=== PATIENT | female | born 1935 | race Caucasian/White ===

== ENCOUNTER 2023-02-01 07:22 | Emergency (ER) | payer MEDICARE, OTHER ==
[~2023-02-01] VITALS: Ht 167.6 cm; Wt 79.4 kg
[2023-02-01] MEDS ORDERED: ASPIRIN REGIMEN81 MG PO (07:48)
[2023-02-01] MEDS ORDERED: LIPITOR10 MG PO (07:49)
[2023-02-01] MEDS ORDERED: DOCUSATE SODIU100 MG PO (07:49)
[2023-02-01] MEDS ORDERED: LOSARTAN POTASS25 MG PO (07:50)
[2023-02-01] MEDS ORDERED: METAMUCIL POWD174 GM PO (07:50)
[2023-02-01] MEDS ORDERED: VIACTIV 650 MG1 EACH PO (07:51)
[2023-02-01] MEDS ORDERED: B-12 DOTS500 MCG PO (07:53)
[2023-02-01] MEDS ORDERED: VITAMIN D3125 MC2 PO (07:54)
[2023-02-01] MEDS ORDERED: VITAMIN E180 MG PO (07:55)
[2023-02-01 10:25] VITALS: BP 142/86
== END 2023-02-01 10:25 | disposition home or self-care (01) ==
LOC: ED 07:22
DX: S60.221A Contusion of right hand, initial encounter (principal); W19.XXXA Unspecified fall, initial encounter; G30.9 Alzheimer's disease, unspecified; F02.80 Dementia in other diseases classified elsewhere, unspecified severity, without behavioral disturbance, psychotic disturbance, mood disturbance, and anxiety; I12.9 Hypertensive chronic kidney disease with stage 1 through stage 4 chronic kidney disease, or unspecified chronic kidney disease; N18.30 Chronic kidney disease, stage 3 unspecified; E11.22 Type 2 diabetes mellitus with diabetic chronic kidney disease; Z88.0 Allergy status to penicillin; Z79.899 Other long term (current) drug therapy; Z79.82 Long term (current) use of aspirin
CPT/HCPCS: 73130; 99283-25

== ENCOUNTER 2023-10-24 17:06 | Emergency (ER) | payer MEDICARE, OTHER ==
[~2023-10-24] VITALS: Ht 167.6 cm; Wt 79.4 kg
[~2023-10-24 17:06] MED LIST: ASPIRIN REGIMEN81 MG PO; B-12 DOTS500 MCG PO; DOCUSATE SODIU100 MG PO; LIPITOR10 MG PO; LOSARTAN POTASS25 MG PO; METAMUCIL POWD174 GM PO; VIACTIV 650 MG1 EACH PO; VITAMIN D3125 MC2 PO; VITAMIN E180 MG PO
[2023-10-24 17:40] LABS: BASOPHILS 0.6 % (0-2); HEMOGLOBIN 12.4 g/dL (12.0-18.0); PLATELET COUNT 189 K/uL (140-440)
[2023-10-24 18:04] LABS: EOSINOPHILS 0.2 % (0-6); HEMATOCRIT 36.9 % (35.0-50.0); LYMPHOCYTES 13.8 % (24-44); MCH 31.3 (27-36); MCHC 33.6 g/dl (30-36); MCV 93.3 fl (81-99); MONOCYTES 15.6 % (0-12); NEUTROPHILS 69.8 % (39-80); RBC 3.95 M/ul (4.3-5.7); RDW 14.1 (10.5-15.0)
[2023-10-24 18:04] LABS: BILIRUBIN, URINE NEGATIVE (negative); BLOOD/HGB, URINE TRACE-I (Negative); KETONE, URINE NEGATIVE (Negative); LEUK ESTERASE, URINE MODERATE (negative); NITRITE, URINE NEGATIVE (negative); PH, URINE 7.5 (5-7)
[2023-10-24 18:16] LABS: INFLUENZA B NAA NEGATIVE (NEGATIVE); RESPIRATORY SYNCYTIAL VIR NAA NEGATIVE (NEGATIVE)
[2023-10-24 18:16] LABS: ALBUMIN 3.1 g/dL (3.4-5.0); ALBUMIN/GLOBULIN RATIO 0.74 (1.1-2.4); ANION GAP 14.4 (7-21); BILIRUBIN, TOTAL 0.4 ng/dL (0.2-1.0); BUN/CREATININE RATIO 18.33 (6.0-28.6); CALCIUM 8.5 mg/dL (8.5-10.1); CREATININE, SERUM 1.2 mg/dL (0.55-1.02); POTASSIUM 4.4 mmol/L (3.5-5.1); PROTEIN, TOTAL 7.3 g/dL (6.4-8.2)
[2023-10-24 18:18] LABS: BACTERIA, URINE 2+ /hpf (negative); CASTS, URINE NONE SEEN \\lpf; COLLECTION TYPE, URINE CATH; CRYSTALS, URINE NONE SEEN (0-1+); EPITHELIAL CELLS, URINE SQUAMOUS 2+ /lpf (0-1+); REFLEX CULTURE, URINE No (No); WHITE BLOOD CELLS, URINE 21-40 /HPF (0-5)
[2023-10-24 18:58] LABS: BILIRUBIN, URINE NEGATIVE (negative); BLOOD/HGB, URINE NEGATIVE (Negative); KETONE, URINE NEGATIVE (Negative); LEUK ESTERASE, URINE TRACE (negative); NITRITE, URINE NEGATIVE (negative)
[2023-10-24 19:10] LABS: BACTERIA, URINE 1+ /hpf (negative); COLLECTION TYPE, URINE CLEAN CATCH; CRYSTALS, URINE NONE SEEN (0-1+); EPITHELIAL CELLS, URINE SQUAMOUS 1+ /lpf (0-1+); REFLEX CULTURE, URINE Yes (No); WHITE BLOOD CELLS, URINE 21-40 /HPF (0-5)
[2023-10-24 19:11] LABS: CASTS, URINE NONE SEEN \\lpf
[2023-10-24] MEDS ORDERED: CEPHALEXIN500 M1 PO (19:48)
[2023-10-24] MEDS ORDERED: PAXLOVID 150-11 EAC1 PO (19:48)
[2023-10-24 20:08] VITALS: BP 173/74
== END 2023-10-24 20:09 | disposition home or self-care (01) ==
LOC: ED 17:06
PROVIDERS: Emergency Medicine
DX: U07.1 COVID-19 (principal); N39.0 Urinary tract infection, site not specified; G30.9 Alzheimer's disease, unspecified; F02.80 Dementia in other diseases classified elsewhere, unspecified severity, without behavioral disturbance, psychotic disturbance, mood disturbance, and anxiety; E11.22 Type 2 diabetes mellitus with diabetic chronic kidney disease; I12.9 Hypertensive chronic kidney disease with stage 1 through stage 4 chronic kidney disease, or unspecified chronic kidney disease; N18.30 Chronic kidney disease, stage 3 unspecified; Z86.73 Personal history of transient ischemic attack (TIA), and cerebral infarction without residual deficits; Z88.0 Allergy status to penicillin; Z79.899 Other long term (current) drug therapy; Z79.82 Long term (current) use of aspirin
CPT/HCPCS: 36415; 80053; 81001; 85025; 87088; 87502; 99284; A9270; U0002

== ENCOUNTER 2023-11-25 19:33 | Emergency (ER) | payer MEDICARE, OTHER ==
[~2023-11-25] VITALS: Ht 167.6 cm; Wt 78.5 kg
[~2023-11-25 19:33] MED LIST changes: +CEPHALEXIN500 M1 PO; +CLONIDINE HCL0.1 MG PO; +PAXLOVID 150-11 EAC1 PO
--- OUTSIDE RECORDS SUMMARY | 2023-11-25 19:36 | XMS ---
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 [place] has no Care Guidelines for this patient. Yani VISIT COUNT (12 MO.) 5 [facility] [place] [facility] TOTAL 5 NOTE: Visits indicate total known visits. ED/C VISIT TRACKING (12 MO.) 11/25/2023 19:[address] [facility] [place] TYPE: Emergency COMPLAINT: - ALTERED LOC 11/25/2023 11:58 [facility] [place] TYPE: Emergency COMPLAINT: - STROKE SYMPTOMS 10/24/2023 17:09 [facility] [place] TYPE: Emergency COMPLAINT: - WEAKNESS DIAGNOSES: - Allergy status to penicillin - Alzheimer's disease, unspecified - Chronic kidney disease, stage 3 unspecified - COVID-19 - Dementia in other diseases classified elsewhere, unspecified severity, without behavioral disturbance, psychotic disturbance, mood disturbance, and anxiety - Hypertensive chronic kidney disease with stage 1 through stage 4 chronic kidney disease, or unspecified chronic kidney disease - watermaster (current) use of aspirin - Other intermediate (current) drug therapy - Personal history of transient ischemic attack (TIA), and cerebral infarction without residual deficits - Type 2 diabetes mellitus with diabetic chronic kidney disease - Urinary tract infection, site not specified - Weakness 06/25/2023 07:26 [facility] [place] TYPE: Emergency COMPLAINT: - POSS STROKE DIAGNOSES: - Allergy status to penicillin - Chronic kidney disease, unspecified - Contact with and (suspected) exposure to COVID-19 - Hypertensive chronic kidney disease with stage 1 through stage 4 chronic kidney disease, or unspecified chronic kidney disease - watermaster (current) use of aspirin - Other intermediate (current) drug therapy - Other specified noninflammatory disorders of vagina - Type 2 diabetes mellitus with diabetic chronic kidney disease - Weakness 02/01/2023 07:24 [facility] [place] TYPE: Emergency COMPLAINT: - RT WRIST PAIN, DIZZY DIAGNOSES: - Allergy status to penicillin - Alzheimer's disease, unspecified - Chronic kidney disease, stage 3 unspecified - Contusion of right hand, initial encounter - Dementia in other diseases classified elsewhere, unspecified severity, without behavioral disturbance, psychotic disturbance, mood disturbance, and anxiety - Hypertensive chronic kidney disease with stage 1 through stage 4 chronic kidney disease, or unspecified chronic kidney disease - watermaster (current) use of aspirin - Other terminal gauger (current) drug therapy - Type 2 diabetes mellitus with diabetic chronic kidney disease - Unspecified fall, initial encounter INPATIENT VISIT TRACKING (12 MO.) No inpatient visits to display in this time frame [email or web address]
[2023-11-25] MEDS ORDERED: IBLOOD GLUCOSE TEST STRIP 1 EA TEST XX ONE (20:15)
[2023-11-25 20:22] LABS: BASOPHILS 0.2 % (0-2); EOSINOPHILS 0.1 % (0-6); HEMATOCRIT 40.5 % (35.0-50.0); HEMOGLOBIN 13.3 g/dL (12.0-18.0); LYMPHOCYTES 2.7 % (24-44); MCH 30.8 (27-36); MCHC 32.8 g/dl (30-36); MCV 93.9 fl (81-99); MONOCYTES 5.8 % (0-12); NEUTROPHILS 91.2 % (39-80); PLATELET COUNT 167 K/uL (140-440); RBC 4.31 M/ul (4.3-5.7); RDW 14.5 (10.5-15.0)
[2023-11-25] MEDS ORDERED: SODIUM CHLORIDE 0.9% 1,000 ML IV SCH (20:30)
[2023-11-25 20:40] LABS: ALBUMIN 3.4 g/dL (3.4-5.0); ALBUMIN/GLOBULIN RATIO 0.85 (1.1-2.4); ANION GAP 18.6 (7-21); BILIRUBIN, TOTAL 0.6 ng/dL (0.2-1.0); BUN/CREATININE RATIO 25.54 (6.0-28.6); CREATININE, SERUM 1.37 mg/dL (0.55-1.02); MAGNESIUM 1.8 mg/dL (1.8-2.4); POTASSIUM 4.6 mmol/L (3.5-5.1); PROTEIN, TOTAL 7.4 g/dL (6.4-8.2)
[2023-11-25 21:54] LABS: BILIRUBIN, URINE NEGATIVE (negative); BLOOD/HGB, URINE NEGATIVE (Negative); KETONE, URINE NEGATIVE (Negative); LEUK ESTERASE, URINE NEGATIVE (negative); NITRITE, URINE NEGATIVE (negative); PH, URINE 5.5 (5-7)
[2023-11-25 21:59] LABS: EPITHELIAL CELLS, URINE SQUAMOUS 1+ /lpf (0-1+)
[2023-11-25 22:00] LABS: BACTERIA, URINE RARE /hpf (negative); CASTS, URINE NONE SEEN \\lpf; CRYSTALS, URINE NONE SEEN (0-1+); REFLEX CULTURE, URINE No (No); WHITE BLOOD CELLS, URINE 0-1 /HPF (0-5)
[2023-11-25 22:15] VITALS: BP 153/83
--- NOTE | 2023-11-26 22:12 | EKG ---
[facility] [address] [facility] [place] [address] Signed Normal sinus rhythm Normal ECG When compared with ECG of 25-NOV-2023 12:02, No significant change was found Confirmed by Ronnie Moise MD () on 11/26/2023 10:12:02 PM Electronically Signed By: RONNIE MOISE MD 11/26/232211 PATIENT NAME: TURNER ALVARADO Constanza Electrocardiogram DATE OF : 37 PHYSICIAN: RONNIE MOISE MD REPORT #: [id number] REPORT IS CONFIDENTIAL AND NOT TO BE RELEASED WITHOUT AUTHORIZATION
== END 2023-11-25 22:15 | disposition home or self-care (01) ==
LOC: ED 19:33
PROVIDERS: Emergency Medicine
DX: R53.1 Weakness (principal); G30.9 Alzheimer's disease, unspecified; F02.80 Dementia in other diseases classified elsewhere, unspecified severity, without behavioral disturbance, psychotic disturbance, mood disturbance, and anxiety; I12.9 Hypertensive chronic kidney disease with stage 1 through stage 4 chronic kidney disease, or unspecified chronic kidney disease; E11.22 Type 2 diabetes mellitus with diabetic chronic kidney disease; N18.30 Chronic kidney disease, stage 3 unspecified; Z88.0 Allergy status to penicillin; Z79.82 Long term (current) use of aspirin; Z79.899 Other long term (current) drug therapy
CPT/HCPCS: 36415; 80053; 81001; 83735; 84484; 85025; 93005; 93010; J7030

== ENCOUNTER 2024-02-24 12:06 | Emergency (ER) | payer OTHER, MEDICARE ==
[~2024-02-24] VITALS: Ht 167.6 cm; Wt 80.0 kg
[2024-02-24 14:27] VITALS: BP 166/66
== END 2024-02-24 14:29 | disposition home or self-care (01) ==
LOC: ED 12:06
DX: Z04.3 Encounter for examination and observation following other accident (principal); L27.1 Localized skin eruption due to drugs and medicaments taken internally; T36.8X5A Adverse effect of other systemic antibiotics, initial encounter; L02.212 Cutaneous abscess of back [any part, except buttock and flank]; E11.22 Type 2 diabetes mellitus with diabetic chronic kidney disease; I12.9 Hypertensive chronic kidney disease with stage 1 through stage 4 chronic kidney disease, or unspecified chronic kidney disease; N18.30 Chronic kidney disease, stage 3 unspecified; F03.90 Unspecified dementia, unspecified severity, without behavioral disturbance, psychotic disturbance, mood disturbance, and anxiety; Z86.73 Personal history of transient ischemic attack (TIA), and cerebral infarction without residual deficits; Z88.0 Allergy status to penicillin; Z79.82 Long term (current) use of aspirin; Z79.899 Other long term (current) drug therapy
CPT/HCPCS: 70450; 72125; 99283-25

== ENCOUNTER 2024-10-23 16:01 | Emergency (ER) | payer MEDICARE, OTHER ==
[~2024-10-23] VITALS: Ht 167.6 cm; Wt 75.0 kg
[2024-10-23] MEDS ORDERED: ALLEGRA ALLERG180 MG PO (16:34)
[2024-10-23] MEDS ORDERED: CLONIDINE HCL0.1 MG PO (16:35)
[2024-10-23 17:12] LABS: BILIRUBIN, URINE NEGATIVE (negative); BLOOD/HGB, URINE NEGATIVE (Negative); KETONE, URINE NEGATIVE (Negative); LEUK ESTERASE, URINE SMALL (negative); NITRITE, URINE NEGATIVE (negative)
[2024-10-23 17:21] LABS: BACTERIA, URINE RARE /hpf (negative); CASTS, URINE NONE SEEN \\lpf; COLLECTION TYPE, URINE CLEAN CATCH; CRYSTALS, URINE NONE SEEN (0-1+); EPITHELIAL CELLS, URINE SQUAMOUS 1+ /lpf (0-1+); RED BLOOD CELLS, URINE 0-1 /hpf (0-5); REFLEX CULTURE, URINE Yes (No); WHITE BLOOD CELLS, URINE 21-40 /HPF (0-5)
[2024-10-23] MEDS ORDERED: AMLODIPINE BESYLATE 5 MG TAB PO ONE (17:30)
[2024-10-23] MEDS ORDERED: NORVASC5 MG PO (17:48)
[2024-10-23 19:00] VITALS: BP 184/71
== END 2024-10-23 19:00 | disposition home or self-care (01) ==
LOC: ED 16:01
PROVIDERS: Emergency Medicine
DX: I10 Essential (primary) hypertension (principal); G30.9 Alzheimer's disease, unspecified; F02.80 Dementia in other diseases classified elsewhere, unspecified severity, without behavioral disturbance, psychotic disturbance, mood disturbance, and anxiety; E11.9 Type 2 diabetes mellitus without complications; E78.00 Pure hypercholesterolemia, unspecified; Z86.73 Personal history of transient ischemic attack (TIA), and cerebral infarction without residual deficits; Z88.2 Allergy status to sulfonamides; Z88.0 Allergy status to penicillin; Z79.82 Long term (current) use of aspirin; Z79.899 Other long term (current) drug therapy
CPT/HCPCS: 81001; 87088; 87186; 99283

== ENCOUNTER 2024-11-28 11:51 | Emergency (ER) | payer MEDICARE, OTHER ==
[~2024-11-28] VITALS: Ht 167.6 cm; Wt 61.7 kg
[~2024-11-28 11:51] MED LIST changes: +ALLEGRA ALLERG180 MG PO; +NORVASC5 MG PO
[2024-11-28] MEDS ORDERED: ACETAMINOPHEN 325 MG TAB PO ONE (14:00)
[2024-11-28 14:12] VITALS: BP 146/75
== END 2024-11-28 14:13 | disposition home or self-care (01) ==
LOC: ED 11:51
DX: S70.02XA Contusion of left hip, initial encounter (principal); G30.9 Alzheimer's disease, unspecified; F02.80 Dementia in other diseases classified elsewhere, unspecified severity, without behavioral disturbance, psychotic disturbance, mood disturbance, and anxiety; I12.9 Hypertensive chronic kidney disease with stage 1 through stage 4 chronic kidney disease, or unspecified chronic kidney disease; E11.22 Type 2 diabetes mellitus with diabetic chronic kidney disease; N18.30 Chronic kidney disease, stage 3 unspecified; E78.00 Pure hypercholesterolemia, unspecified; H91.90 Unspecified hearing loss, unspecified ear; Z86.73 Personal history of transient ischemic attack (TIA), and cerebral infarction without residual deficits; Z88.0 Allergy status to penicillin; Z88.2 Allergy status to sulfonamides; Z79.82 Long term (current) use of aspirin; Z79.899 Other long term (current) drug therapy; W18.30XA Fall on same level, unspecified, initial encounter
CPT/HCPCS: 73502; 99283; A9270